=== PATIENT | male | born 1995 ===

== ENCOUNTER 2021-05-02 20:45 | Emergency (ER) ==
[~2021-05-02] VITALS: Ht 175.3 cm; Wt 52.0 kg
[2021-05-02 23:09] VITALS: BP 145/75
--- NOTE | 2021-05-03 05:35 | ECGEPIP ---
[facility] - ED Test Date: 2021-05-02 Pat Name: MAAME BAKER Department: Room: - Gender: Male Pilot Manager: ROSALINDA : 1995 Requested By: DEVONTE MAZA PA-C Order Number: [id number] Reading MD: Haroldo Graham Measurements Intervals [place] Rate: 68 P: 67 WV: 146 QRS: 72 QRSD: 96 T: 61 QT: 402 QTc: 427 Interpretive Statements Normal sinus rhythm with sinus arrhythmia Incomplete right bundle branch block NO PRIORS FOR COMPARISON Electronically Signed on 05-03-2021 5:35:36 EDT by Haroldo Graham
== END 2021-05-03 00:03 | disposition left against medical advice (07) ==
LOC: M ED 20:45
DX: Z53.29 Procedure and treatment not carried out because of patient's decision for other reasons (principal)